=== PATIENT | female | born 1985 | race Caucasian/White ===

== ENCOUNTER 2016-11-11 21:18 | Emergency (ER) | payer MEDICAID ==
[2016-11-11] MEDS ORDERED: LIDOCAINE 1%-EPI 1:100000 20 ML MDV ONE (21:40)
[2016-11-11] MEDS ORDERED: LIDOCAINE 1%-EPI 1:100000 20 ML MDV SUBQ STA (21:40)
== END 2016-11-11 22:33 | disposition home or self-care (01) ==
DX: N76.4 Abscess of vulva (principal); Z88.1 Allergy status to other antibiotic agents

== ENCOUNTER 2017-05-14 08:02 | Outpatient (CLI) | payer MEDICAID | END 2017-05-14 08:03 | disposition home or self-care (01) | DX: R14.0 Abdominal distension (gaseous) (principal) ==

== ENCOUNTER 2017-05-16 08:00 | Outpatient (CLI) | payer MEDICAID | END 2017-05-16 08:01 | LOC: LAB.R 08:00 | PROVIDERS: ATTEND Family Medicine | DX: R14.0 Abdominal distension (gaseous) (principal); R63.4 Abnormal weight loss; J30.9 Allergic rhinitis, unspecified | CPT/HCPCS: 87338 ==

== ENCOUNTER 2017-06-03 15:37 | Outpatient (CLI) | payer MEDICAID ==
--- NOTE | 2017-06-04 08:50 | Ultrasound Report ---
THYROID ULTRASOUND: 06/03/2017 CLINICAL INDICATION: Goiter, hypothyroidism. TECHNIQUE: Real-time scanning was performed with community health representative static images obtained. FINDINGS: The right lobe measures 5.3 x 1.8 x 1.3 cm, and the left lobe measures 5.3 x 1.6 x 1.2 cm. The isthmus measures 2 mm. In the lower pole of the right lobe, there is a 0.9 x 0.5 x 0.5 cm echogenic nodule. No calcifications are seen. No adenopathy is appreciated. IMPRESSION: SMALL ECHOGENIC NODULE IN THE LOWER POLE OF THE RIGHT LOBE OF THE THYROID. GIVEN THE SMALL SIZE, FNA IS NOT RECOMMENDED BY [facility]. FOLLOW- UP SCAN IN 1 YEAR IS RECOMMENDED. JOB #: [id number] EXT JOB #: [id number] TOREY
== END 2017-06-03 15:38 | disposition home or self-care (01) ==
LOC: DI 15:37
PROVIDERS: ATTEND Family Medicine
DX: E04.1 Nontoxic single thyroid nodule (principal)
CPT/HCPCS: 76536

== ENCOUNTER 2017-06-16 07:30 | Emergency (ER) | payer OTHER, MEDICAID ==
--- NOTE | 2017-06-16 07:34 | ED Physician Documentation ---
PD HPI LOWER EXT INJURY - Stated complaint Stated Complaint: L LEG INJ - History obtained from History obtained from: Patient - History of Present Illness PD HPI LOW EXT INJURY LOCATION: Left, Ankle Type of injury: Blunt / blow (she says a laundry cart rolled and struck into her ankle laterally, with pain at the time, but has gotten more painful and some swollen later in day and overnight. Unable to walk comfortably this morning. Pain radiates up to the knee. She had feeling of jolt/pain shoot up to knee with initial impact. Small abrasion without laceration.) Review of Systems Skin: reports: Abrasion (s). denies: Laceration (s) Neurologic: denies: Focal weakness, Numbness PD PAST MEDICAL HISTORY - Present Medications Home Medications: Ambulatory Orders Medication Instructions Recorded Confirmed Clindamycin HCl 300 mg PO Q6H 7 Days 11/11/16 Gabapentin 1 tab PO DAILY 11/11/16 11/11/16 Hydrocodone/Acetaminophen [Vicodin 1 tab PO Q6HR PRN 11/11/16 11/11/16 5-300 mg Tablet] - Allergies Allergies/Adverse Reactions: Allergies Allergy/AdvReac Type Severity Reaction Status Date / Time Sulfa (Sulfonamide Allergy Emesis Verified 06/16/17 07:44 Antibiotics) PD ED PE NORMAL - Vitals Vital signs reviewed: Yes - General General: Alert and oriented X 3, Well developed/nourished - Derm Derm: Normal color, Warm and dry - Extremities Extremities: Other (tender lateral left ankle over lower malleolus area, with abrasion and some local swelling. Achilles firm and not tender. Medial ankle not tender. ) - Neuro Neuro: Alert and oriented X 3, No motor deficit, No sensory deficit Results - Vitals Vitals: Vital Signs - 24 hr 06/16/17 07:35 Temperature 36.6 C Heart Rate 70 Respiratory 14 Rate Blood Pressure 105/63 O2 Saturation 100 Oxygen O2 Source Room air - Rads (name of study) ankle Radiology: Prelim report reviewed, EMP read contemporaneously (no osseous injury ) PD MEDICAL DECISION MAKING - ED course Complexity details: reviewed results (no fractures), considered differential, d/ w patient Departure - Departure Disposition: 01 Home, Self Care Clinical Impression: Ankle contusion Qualifiers: Encounter type: initial encounter Laterality: left Qualified Code(s): S90.02XA - Contusion of left ankle, initial encounter Condition: Stable Record reviewed to determine appropriate education?: Yes Instructions: ED Contusion Foot, ED Sprain Ankle Comments: Ankle brace to support/guard the movement. Partial to no weight bearing as needed for couple of days. Progress activity as able. Off work today, and then tomorrow if needed. Tylenol as needed for pain every 4-6 hours. Elevate and rest the ankle often today. Forms: Activity restrictions
[2017-06-16 07:44] VITALS: BP 105/63
[2017-06-16] MEDS ORDERED: ACETAMINOPHEN 325 MG TABLET PO STA (07:45)
[2017-06-16] MEDS ORDERED: ACETAMINOPHEN 325 MG TABLET PO ONE (07:53)
--- NOTE | 2017-06-16 08:30 | XRAY Preliminary Report ---
Exam: XR Ankle 3 View LT IMPRESSION: Negative left ankle. [facility] SITE ID: [id number]
--- NOTE | 2017-06-16 08:33 | XRAY Report ---
EXAM: LEFT ANKLE RADIOGRAPHY EXAM DATE: 06/16/2017 08:05 AM. CLINICAL HISTORY: Ankle struck by cart at work yesterday. COMPARISON: None. TECHNIQUE: 3 views. FINDINGS: Bones: Normal. No fractures or bone lesions. Joints: Normal. No effusion. No subluxations. The ankle mortise is normally aligned. Soft Tissues: Normal. No soft tissue swelling. IMPRESSION: Negative left ankle. [facility] Referring Provider Line: [phone] SITE ID: [id number]
== END 2017-06-16 08:31 | disposition home or self-care (01) ==
LOC: ED 07:30
DX: S90.02XA Contusion of left ankle, initial encounter (principal); W20.8XXA Other cause of strike by thrown, projected or falling object, initial encounter
CPT/HCPCS: 73610; 99282; 99283; A9270

== ENCOUNTER 2017-06-27 09:05 | Outpatient (CLI) | payer MEDICAID | END 2017-06-27 09:06 | disposition home or self-care (01) | LOC: LAB 09:05 | PROVIDERS: ATTEND Family Medicine | DX: E03.9 Hypothyroidism, unspecified (principal) | CPT/HCPCS: 36415; 84443 ==

== ENCOUNTER 2017-07-29 15:18 | Outpatient (CLI) | payer MEDICAID ==
--- NOTE | 2017-07-30 08:32 | Ultrasound Report ---
PELVIC ULTRASOUND: 07/29/2017 CLINICAL INDICATION: Pelvic pain. TECHNIQUE: Transabdominal pelvic ultrasound performed for global evaluation. Transvaginal pelvic ul trasound performed for detailed evaluation. Real-time scanning performed and static images obtained. FINDINGS: The uterus is anteverted, measuring 8.7 x 3.8 x 5.3 cm. The endometrial echo complex emerson ures 6 mm. An IUD is noted in the expected location. No focal myometrial lesion is seen. The right ovary measures 3.0 x 2.7 x 2.1 cm, and demonstrates a follicle. The left ovary measures 3.2 x 1.9 x 1.8 cm, and demonstrates a follicle. No free fluid is present. IMPRESSION: IUD IN THE EXPECTED LOCATION. NORMAL PELVIC ULTRASOUND. JOB #: [id number] EXT JOB #:[id number]
== END 2017-07-29 15:19 | disposition home or self-care (01) ==
LOC: DI 15:18
PROVIDERS: ATTEND Obstetrics & Gynecology
DX: R10.2 Pelvic and perineal pain (principal); Z97.5 Presence of (intrauterine) contraceptive device
CPT/HCPCS: 76830; 76856

== ENCOUNTER 2018-02-03 11:49 | Emergency (ER) | payer MEDICAID ==
--- NOTE | 2018-02-03 14:17 | ED Physician Documentation ---
PD HPI CHEST PAIN - Stated complaint Stated Complaint: RT BACK PAIN - Chief complaint Chief Complaint: General - History obtained from History obtained from: Patient PD PAST MEDICAL HISTORY - Past Medical History Past Medical History: Yes - Present Medications Home Medications: Ambulatory Orders Medication Instructions Recorded Confirmed Cyclobenzaprine [Flexeril] 02/03/18 - Allergies Allergies/Adverse Reactions: Allergies Allergy/AdvReac Type Severity Reaction Status Date / Time Sulfa (Sulfonamide Allergy Intermediate Emesis Verified 02/03/18 12:02 Antibiotics) - Social History Does the pt smoke?: No Smoking Status: Never smoker Results - Vitals Vitals: Vital Signs - 24 hr 02/03/18 11:59 Temperature 36.9 C Heart Rate 78 Respiratory 16 Rate Blood Pressure 112/67 O2 Saturation 100 Oxygen O2 Source Room air
[2018-02-03] MEDS ORDERED: ACETAMINOPHEN 1,000 MG/100 ML 100 ML IV STA (14:39)
[2018-02-03] MEDS ORDERED: LIDOCAINE PATCH 5% TOP STA (14:39)
--- NOTE | 2018-02-03 14:40 | ED Physician Documentation ---
History of Present Illness - Stated complaint Stated Complaint: RT BACK PAIN - Chief complaint Chief Complaint: General - Additonal information Additional information: hx from pt 33 female to ER with R posterior scapular region pain since yesterday worse with certain movement and positions - rita laying flat, better standing up occ hurts to breath but more positional some abd pain too no fever cough no NVD no hematuria might be Review of Systems Constitutional: denies: Fever Throat: denies: Sore throat Cardiac: reports: Chest pain / pressure (posterior scapular region) Respiratory: denies: Dyspnea, Cough GI: reports: Abdominal Pain (mild). denies: Nausea, Vomiting : reports: Now EGA (maybe) Endocrine: denies: Easy bruising / bleeding Immunocompromised: denies: Immunocompromised PD PAST MEDICAL HISTORY - Past Medical History Past Medical History: Yes - Present Medications Home Medications: Ambulatory Orders Medication Instructions Recorded Confirmed Cyclobenzaprine [Flexeril] 02/03/18 Indomethacin [Indocin] 25 mg PO TIDWM PRN #21 capsule 02/03/18 Lidocaine Patch 5% [Lidoderm Patch] 1 each TOP DAILY PRN #10 patch 02/03/18 - Allergies Allergies/Adverse Reactions: Allergies Allergy/AdvReac Type Severity Reaction Status Date / Time Sulfa (Sulfonamide Allergy Intermediate Emesis Verified 02/03/18 12:02 Antibiotics) - Social History Does the pt smoke?: No Smoking Status: Never smoker PD ED PE NORMAL - Vitals Vital signs reviewed: Yes - General General: Alert and oriented X 3 - HEENT HEENT: PERRL - Neck Neck: Supple, no meningeal sign - Cardiac Cardiac: RRR - Respiratory Respiratory: No respiratory distress, Clear bilaterally - Abdomen Abdomen: Soft, Other (mod TTP RUQ neg murphys) - Extremities Extremities: No edema - Neuro Neuro: Alert and oriented X 3 Results - Vitals Vitals: Vital Signs - 24 hr 02/03/18 11:59 Temperature 36.9 C Heart Rate 78 Respiratory 16 Rate Blood Pressure 112/67 O2 Saturation 100 Oxygen O2 Source Room air - Labs Labs: Laboratory Tests 02/03/18 02/03/18 02/03/18 15:00 15:00 15:00 WBC 8.9 RBC 4.90 Hgb 14.4 Hct 42.7 MCV 87.1 MCH 29.3 MCHC 33.7 RDW 13.0 Plt Count 191 MPV 8.0 Neut # 6.2 Lymph # 2.1 Lagrange # 0.5 Eos # 0.0 Baso # 0.0 Absolute Nucleated RBC 0.00 Nucleated RBC % 0.0 D-Dimer < 200.0 L Sodium Potassium Chloride Carbon Dioxide Anion Gap BUN Creatinine Estimated GFR (MDRD) Glucose Calcium Total Bilirubin AST ALT Alkaline Phosphatase Total Protein Albumin Globulin Albumin/Globulin Ratio Lipase Serum HCG, Qual NEGATIVE Urine Color Urine Clarity Urine pH Ur Specific [place] Urine Protein Urine Glucose (UA) Urine Ketones Urine Occult Blood Urine Nitrite Urine Bilirubin Urine Urobilinogen Ur Leukocyte Esterase Urine RBC Urine WBC Ur Squamous Epith Cells Urine Bacteria Ur Microscopic Review Urine Culture Comments 02/03/18 02/03/18 15:00 15:00 WBC RBC Hgb Hct MCV MCH MCHC RDW Plt Count MPV Neut # Lymph # Lagrange # Eos # Baso # Absolute Nucleated RBC Nucleated RBC % D-Dimer Sodium 136 Potassium 3.7 Chloride 104 Carbon Dioxide 27 Anion Gap 5.0 L BUN 16 Creatinine 0.6 Estimated GFR (MDRD) 116 Glucose 87 Calcium 8.8 Total Bilirubin 0.7 AST 19 ALT 14 Alkaline Phosphatase 80 Total Protein 7.6 Albumin 4.6 Globulin 3.0 Albumin/Globulin Ratio 1.5 Lipase 16 L Serum HCG, Qual Urine Color YELLOW Urine Clarity HAZY Urine pH 6.0 Ur Specific [place] 1.025 Urine Protein NEGATIVE Urine Glucose (UA) NEGATIVE Urine Ketones NEGATIVE Urine Occult Blood TRACE-LYSE Urine Nitrite NEGATIVE Urine Bilirubin NEGATIVE Urine Urobilinogen 0.2 (NORMAL) Ur Leukocyte Esterase MODERATE H Urine RBC 0-5 Urine WBC 6-10 H Ur Squamous Epith Cells MANY Squamous H Urine Bacteria Few Ur Microscopic Review INDICATED Urine Culture Comments NOT INDICATED - Rads (name of study) ruq sono Radiology: See rad report (no gallstones) CXR Radiology: See rad report (NACPD) PD MEDICAL DECISION MAKING - ED course ED course: atraumatic R scapular pain CXR no pna pneumo tumor etc some abd TTP but sono no gallstones, no hydro UA not a clean catch but not suggestive of renal colic or pyelo neg d dimer nl mediastinum on CXR feel dissection PE pna pneumo biliary colic renal colic pyelo shingles etc ruled out so will tx symptomatically Departure - Departure Disposition: 01 Home, Self Care Clinical Impression: Thoracic back pain Qualifiers: Chronicity: acute Back pain laterality: right Qualified Code(s): M54.6 - Pain in thoracic spine Condition: Good Instructions: ED Neck Back Pain General Follow-Up: Giovanny Garcia MD [Primary Care Provider] - Prescriptions: Indomethacin [Indocin] 25 mg PO TIDWM PRN #21 capsule PRN Reason: pain Lidocaine Patch 5% [Lidoderm Patch] 1 each TOP DAILY PRN #10 patch PRN Reason: Pain Comments: All of the tests came back fine Based on the exam labs xray and ultrasound, it does not seem that you have pneumonia, a collapsed lung, an aneurysm or tear of your aorta, a blood clot in your lung, gallstones, kidney stones or a kidney infection causing your pain The pain seems worse with certain movements so it could be due to muscles in the chest wall though you do not recall a specific event. One thing that can cause severe one sided pain is shingles - often the pain precedes the rash for several days to a week - so please take a look at your back every day and if a red blistered crusted rash develops, come back to the ER for anti-viral medications Otherwise, having ruled out dangerous causes of the pain, I recommend that we let you go home with medications to ease the symptoms Forms: Activity restrictions
[2018-02-03 15:11] LABS: BASOPHILS % (AUTO) 0.3 %; EOSINOPHILS % (AUTO) 0.5 %; HGB - HEMOGLOBIN 14.4 g/dL (12.0-16.0); LYMPHOCYTES # (AUTO) 2.1 10^3/uL (1.5-3.5); LYMPHOCYTES % (AUTO) 23.2 %; MEAN CORPUSCULAR HEMOGLOBIN 29.3 pg (27.0-31.0); MEAN CORPUSCULAR HGB CONC 33.7 g/dL (32.0-36.0); MEAN CORPUSCULAR VOLUME 87.1 fL (81.0-99.0); MONOCYTES # (AUTO) 0.5 10^3/uL (0.0-1.0); MONOCYTES % (AUTO) 5.9 %; NEUTROPHILS # (AUTO) 6.2 10^3/uL (1.5-6.6); NEUTROPHILS % (AUTO) 70.1 %; PLT - PLATELET COUNT 191 10^3/uL (130-450); WHITE BLOOD COUNT 8.9 x10^3/uL (4.8-10.8)
[2018-02-03 15:15] LABS: BILIRUBIN,URINE NEGATIVE (NEGATIVE); GLUCOSE, URINE (UA) NEGATIVE (NEGATIVE); KETONES,URINE (UA) NEGATIVE (NEGATIVE); LEUKOCYTE ESTERASE, URINE MODERATE (NEGATIVE); NITRITE,URINE NEGATIVE (NEGATIVE); OCCULT BLOOD,URINE TRACE-LYSE (NEGATIVE); PROTEIN,URINE NEGATIVE (NEGATIVE); UROBILINOGEN,URINE 0.2 (NORMAL) E.U./dL (NORMAL)
[2018-02-03 15:16] LABS: CLARITY,URINE HAZY (CLEAR)
[2018-02-03 15:25] LABS: ALBUMIN 4.6 g/dL (3.2-5.5); ALBUMIN/GLOBULIN RATIO 1.5 (1.0-2.2); BILIRUBIN,TOTAL 0.7 mg/dL (0.2-1.0); CALCIUM 8.8 mg/dL (8.5-10.3); CREATININE 0.6 mg/dL (0.4-1.0); TOTAL PROTEIN 7.6 g/dL (6.7-8.2)
[2018-02-03 15:32] LABS: HCG,QUALITATIVE BLOOD NEGATIVE
[2018-02-03 15:44] LABS: BACTERIA,URINE Few /HPF (None Seen); RBC,URINE 0-5 /HPF (0-5); SQUAMOUS EPITHELIAL CELL,UR MANY Squamous (<= Few)
--- NOTE | 2018-02-03 16:49 | Ultrasound Report ---
LIMITED RIGHT UPPER QUADRANT ULTRASOUND: 02/03/2018 HISTORY: Right upper quadrant pain radiating to the right shoulder. COMPARISON: None. TECHNIQUE: Real-time scanning was performed with digital media representative static images obtained. FINDINGS: Liver: Normal echotexture and hepatic portovenous blood flow. Length 16 cm. Gallbladder: No stones. No pericholecystic fluid or wall thickening. Common bile duct: 2.7 mm. Right kidney: 11.1 cm in length. No hydronephrosis, mass, or stones. Free fluid: None. IMPRESSION: NEGATIVE RIGHT UPPER QUADRANT ULTRASOUND. TD: 02/03/2018 16:48 MTDD
--- NOTE | 2018-02-03 16:58 | XRAY Report ---
EXAM: CHEST RADIOGRAPHY EXAM DATE: 02/03/2018 04:31 PM. CLINICAL HISTORY: Right scapula pain. Negative d dimer, neg HCG. COMPARISON: None. TECHNIQUE: 2 views. FINDINGS: Lungs/Pleura: No focal opacities evident. No pleural effusion. No pneumothorax. Normal volumes. Mediastinum: Heart and mediastinal contours are unremarkable. Other: Prior anterior cervical fusion noted, otherwise no bony abnormality identified. IMPRESSION: Prior anterior cervical fusion, otherwise unremarkable 2-view chest radiography. [facility] Referring Provider Line: [phone] SITE ID: [id number]
[2018-02-03 17:37] VITALS: BP 104/61
== END 2018-02-03 17:52 | disposition home or self-care (01) ==
LOC: ED 11:49
DX: M54.6 Pain in thoracic spine (principal); R07.9 Chest pain, unspecified; R10.11 Right upper quadrant pain
CPT/HCPCS: 36415; 71046; 76705; 80053; 81001; 83690; 84703; 85025; 85379; 96365; 99283; A9270; J0131; 81003; 87086

== ENCOUNTER 2018-06-04 08:00 | Outpatient (CLI) | payer MEDICAID ==
[2018-06-04 15:31] LABS: MUDS CUTOFF CONCENTRATIONS CUTOFF CONC BELOW:
[2018-06-04 16:05] LABS: AMPHETAMINE SCREEN,URINE NEGATIVE (NEGATIVE); BENZODIAZEPINES SCREEN, URINE NEGATIVE (NEGATIVE); COCAINE SCREEN URINE NEGATIVE (NEGATIVE); METHADONE SCREEN, URINE NEGATIVE (NEGATIVE); METHAMPHETAMINES SCREEN, URINE NEGATIVE (NEGATIVE); OPIATE SCREEN, URINE NEGATIVE (NEGATIVE); OXYCODONE SCREEN, URINE NEGATIVE (NEGATIVE); PROPOXYPHENE SCREEN, URINE NEGATIVE (NEGATIVE); TRICYCLIC ANTIDEPRESSANT,URINE NEGATIVE (NEGATIVE)
== END 2018-06-04 08:01 | disposition home or self-care (01) ==
LOC: LAB.R 08:00
PROVIDERS: ATTEND Registered Nurse
DX: Z36.9 Encounter for antenatal screening, unspecified (principal)
CPT/HCPCS: 80306; 87480; 87491; 87510; 87591; 87660

== ENCOUNTER 2018-06-04 10:17 | Outpatient (CLI) | payer MEDICAID ==
[2018-06-04 11:14] LABS: BASOPHILS % (AUTO) 0.2 %; EOSINOPHILS % (AUTO) 0.3 %; HGB - HEMOGLOBIN 11.8 g/dL (12.0-16.0); LYMPHOCYTES # (AUTO) 1.5 10^3/uL (1.5-3.5); LYMPHOCYTES % (AUTO) 16.1 %; MEAN CORPUSCULAR HEMOGLOBIN 30.4 pg (27.0-31.0); MEAN CORPUSCULAR HGB CONC 34.2 g/dL (32.0-36.0); MEAN CORPUSCULAR VOLUME 89.1 fL (81.0-99.0); MONOCYTES # (AUTO) 0.7 10^3/uL (0.0-1.0); MONOCYTES % (AUTO) 7.2 %; NEUTROPHILS # (AUTO) 6.9 10^3/uL (1.5-6.6); NEUTROPHILS % (AUTO) 76.2 %; PLT - PLATELET COUNT 184 10^3/uL (130-450); RED BLOOD COUNT 3.88 10^6/uL (4.20-5.40); RED CELL DISTRIBUTION WIDTH 12.9 % (12.0-15.0); WHITE BLOOD COUNT 9.1 x10^3/uL (4.8-10.8)
[2018-06-04 11:41] LABS: BILIRUBIN,URINE NEGATIVE (NEGATIVE); GLUCOSE, URINE (UA) NEGATIVE (NEGATIVE); KETONES,URINE (UA) NEGATIVE (NEGATIVE); LEUKOCYTE ESTERASE, URINE NEGATIVE (NEGATIVE); NITRITE,URINE NEGATIVE (NEGATIVE); OCCULT BLOOD,URINE MODERATE (NEGATIVE); PROTEIN,URINE NEGATIVE (NEGATIVE); UROBILINOGEN,URINE 0.2 (NORMAL) E.U./dL (NORMAL)
[2018-06-04 11:43] LABS: CLARITY,URINE CLEAR (CLEAR)
[2018-06-04 11:48] LABS: BACTERIA,URINE Rare /HPF (None Seen); RBC,URINE 0-5 /HPF (0-5); SQUAMOUS EPITHELIAL CELL,UR FEW Squamous (<= Few)
[2018-06-05 13:17] LABS: HEPATITIS C ANTIBODY NON-REACTIVE (NON-REACTIVE)
[2018-06-05 13:41] LABS: HIV AG/AB 4TH GEN NON-REACTIVE (NON-REACTIVE)
[2018-06-05 16:16] LABS: HEPATITIS B SURFACE ANTIGEN NON-REACTIVE (NON-REACTIVE)
== END 2018-06-04 10:18 | disposition home or self-care (01) ==
LOC: LAB 10:17
PROVIDERS: ATTEND Registered Nurse
DX: Z36.9 Encounter for antenatal screening, unspecified (principal)
CPT/HCPCS: 36415; 80306; 81001; 81599; 85025; 86592; 86762; 86803; 86850; 86900; 86901; 87340; 87389; 87480; 87491; 87510; 87591; 87660

== ENCOUNTER 2018-06-09 08:39 | Emergency (ER) | payer MEDICAID ==
--- NOTE | 2018-06-09 08:47 | ED Physician Documentation ---
PD HPI FEMALE - Stated complaint Stated Complaint: CRAMPING/10WKS PREG - History obtained from History obtained from: Patient - History of Present Illness Timing - onset: Today Timing - details: Abrupt onset, Still present Associated symptoms: Pelvic pain, Vaginal bleeding (small clot and then brief bleeding, with some lower abd/pelvic cramping, that has tapered down. Mild cramping now.). No: Fever Contributing factors: (10 weeks), Sexually active. 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 denies: Abdominal Swelling, Vomiting, Constipation, Diarrhea : reports: Now EGA (10 weeks with twins, found on U/S last week.). denies: Dysuria, Frequency, Discharge Skin: denies: Rash PD PAST MEDICAL HISTORY - Past Medical History Cardiovascular: None Respiratory: None Neuro: None COUNTY HOME DEMONSTRATOR: None - Present Medications Home Medications: Ambulatory Orders Medication Instructions Recorded Confirmed Folic Acid 06/09/18 Metronidazole [Flagyl] 500 mg PO BID #14 tablet 06/09/18 Naproxen 375 mg PO BID #15 tablet 06/09/18 Ondansetron Odt [Zofran] 4 mg TL Q6H PRN #15 tablet 06/09/18 Paroxetine HCl [Paxil] 06/09/18 - Allergies Allergies/Adverse Reactions: Allergies Allergy/AdvReac Type Severity Reaction Status Date / Time Sulfa (Sulfonamide Allergy Intermediate Emesis Verified 02/03/18 12:02 Antibiotics) - Social History Does the pt smoke?: No Smoking Status: Never smoker PD ED PE NORMAL - Vitals Vital signs reviewed: Yes - General General: Alert and oriented X 3, No acute distress, Well developed/nourished - HEENT HEENT: Pharynx benign - Neck Neck: Supple, no meningeal sign, No adenopathy - Cardiac Cardiac: RRR, No murmur - Respiratory Respiratory: Clear bilaterally - Female Female : Deferred - Back Back: No CVA TTP - Derm Derm: Normal color, Warm and dry Results - Vitals Vitals: Vital Signs - 24 hr 06/09/18 08:46 Temperature 36.6 C Heart Rate 64 Respiratory 18 Rate Blood Pressure 105/62 O2 Saturation 100 Oxygen O2 Source Room air - Labs Labs: Laboratory Tests 06/09/18 09:00 Urine Color YELLOW Urine Clarity CLEAR Urine pH 7.0 Ur Specific [place] 1.010 Urine Protein NEGATIVE Urine Glucose (UA) NEGATIVE Urine Ketones NEGATIVE Urine Occult Blood NEGATIVE Urine Nitrite NEGATIVE Urine Bilirubin NEGATIVE Urine Urobilinogen 0.2 (NORMAL) Ur Leukocyte Esterase NEGATIVE Ur Microscopic Review NOT INDICATED Urine Culture Comments NOT INDICATED Procedures - Bedside sono Bedside sono by EMP: Twin IUPs with good HR for both, and no noted free fluid. PD MEDICAL DECISION MAKING - ED course Complexity details: reviewed old records (tests from office visit last week show positive for gardnerella, not treated as yet. ), considered differential, d /w patient - Sepsis Event Vital Signs: Vital Signs - 24 hr 06/09/18 08:46 Temperature 36.6 C Heart Rate 64 Respiratory 18 Rate Blood Pressure 105/62 O2 Saturation 100 Oxygen O2 Source Room air Departure - Departure Disposition: 01 Home, Self Care Clinical Impression: Bleeding in early , Bacterial vaginosis Condition: Stable Record reviewed to determine appropriate education?: Yes Instructions: ED Vaginosis Bacterial Follow-Up: [facility] [Provider Group] Prescriptions: Metronidazole [Flagyl] 500 mg PO BID #14 tablet Naproxen 375 mg PO BID #15 tablet Ondansetron Odt [Zofran] 4 mg TL Q6H PRN #15 tablet PRN Reason: Nausea / Vomiting Comments: The results from your pelvic exam from last week did show the presence of some vaginal bacterial infection. Given your symptoms with the cramping and spotting and bleeding, I would presume this is causing an irritation of the uterus and therefore would want to treat it. Metronidazole antibiotic twice daily for a week for that. Drink lots of fluids. The bedside ultrasound today shows good heartbeats of both fetuses and normal appearance of the uterus. You can use naproxen or ibuprofen twice daily for the next week to help with pains and cramps. These are okay at this point in but would not want to be used after 28-30 weeks. Tylenol can be added for pain and cramps and can be used throughout . Ondansetron if needed for nausea. Follow-up with women's health clinic later this week, call for an appointment. Return sooner if worsening symptoms of bleeding or pain. Discharge Date/Time: 06/09/18 09:39
[2018-06-09 08:51] VITALS: BP 105/62
[2018-06-09] MEDS ORDERED: ACETAMINOPHEN 325 MG TABLET PO STA (09:12)
[2018-06-09] MEDS ORDERED: IBUPROFEN 600 MG TABLET PO STA (09:12)
[2018-06-09] MEDS ORDERED: ONDANSETRON ODT 4 MG TABLET TL STA (09:12)
[2018-06-09 09:30] LABS: BILIRUBIN,URINE NEGATIVE (NEGATIVE); GLUCOSE, URINE (UA) NEGATIVE (NEGATIVE); KETONES,URINE (UA) NEGATIVE (NEGATIVE); LEUKOCYTE ESTERASE, URINE NEGATIVE (NEGATIVE); NITRITE,URINE NEGATIVE (NEGATIVE); OCCULT BLOOD,URINE NEGATIVE (NEGATIVE); PROTEIN,URINE NEGATIVE (NEGATIVE); UROBILINOGEN,URINE 0.2 (NORMAL) E.U./dL (NORMAL)
[2018-06-09 09:34] LABS: CLARITY,URINE CLEAR (CLEAR)
== END 2018-06-09 09:39 | disposition home or self-care (01) ==
LOC: ED 08:39
DX: O20.9 Hemorrhage in early pregnancy, unspecified (principal); O23.591 Infection of other part of genital tract in pregnancy, first trimester; N76.0 Acute vaginitis; B96.89 Other specified bacterial agents as the cause of diseases classified elsewhere; O30.001 Twin pregnancy, unspecified number of placenta and unspecified number of amniotic sacs, first trimester; Z3A.10 10 weeks gestation of pregnancy
CPT/HCPCS: 81003; 99282; 99283; A9270; Q0162; 81001; 87086

== ENCOUNTER 2018-07-08 08:00 | Outpatient (CLI) | payer MEDICAID | END 2018-07-08 08:01 | disposition home or self-care (01) | LOC: LAB.R 08:00 | PROVIDERS: ATTEND Registered Nurse | DX: R31.9 Hematuria, unspecified (principal) | CPT/HCPCS: 87086 ==

== ENCOUNTER 2018-10-24 10:10 | Outpatient (CLI) | payer MEDICAID ==
[2018-10-24] MEDS ORDERED: BETAMETHASONE 30 MG/5 ML VIAL IM ONE (10:11)
== END 2018-10-24 10:28 | disposition home or self-care (01) ==
LOC: FBP 10:10 → WFO 10:10
PROVIDERS: ATTEND Obstetrics & Gynecology
DX: O36.5930 Maternal care for other known or suspected poor fetal growth, third trimester, not applicable or unspecified (principal); O30.033 Twin pregnancy, monochorionic/diamniotic, third trimester; Z3A.29 29 weeks gestation of pregnancy
CPT/HCPCS: 96372

== ENCOUNTER 2018-10-25 12:04 | Outpatient (CLI) | payer MEDICAID ==
[2018-10-25] MEDS ORDERED: BETAMETHASONE 30 MG/5 ML VIAL IM ONE (12:13)
== END 2018-10-25 12:28 | disposition home or self-care (01) ==
LOC: WFO 12:04 → FBP 12:12 → WFO 12:28
PROVIDERS: ATTEND Obstetrics & Gynecology
DX: O36.5930 Maternal care for other known or suspected poor fetal growth, third trimester, not applicable or unspecified (principal); O30.033 Twin pregnancy, monochorionic/diamniotic, third trimester; Z3A.29 29 weeks gestation of pregnancy
CPT/HCPCS: 96372

== ENCOUNTER 2018-11-10 09:46 | Outpatient (CLI) | payer MEDICAID ==
[2018-11-10 10:07] VITALS: BP 95/58
--- NOTE | 2018-11-11 19:34 | PROVIDER PROGRESS NOTE ---
Subjective - Prog Note Date Prog Note Date: 11/10/18 Prog Note Time: 12:00 - Subjective Subjective: Aleja Pride is a 33-year-old 5 para 3 di-di-twin gestation at 32 weeks and 1 day who comes for her weekly scheduled NST. NST Twin A baseline 148 adequate variability adequate excels 15 x 15 no decelerations Twin B baseline 140s, adequate variability, positive excels meeting criteria, small insignificant mild spiking decelerations to 120 NST twin A reactive, category 1 NST twin B reactive, category 1 small variable decelerations very mild and insignificant
== END 2018-11-10 11:40 | disposition home or self-care (01) ==
LOC: WFO 09:46 → FBP 09:47 → WFO 11:40
PROVIDERS: ATTEND Obstetrics & Gynecology
DX: O30.043 Twin pregnancy, dichorionic/diamniotic, third trimester (principal); Z3A.32 32 weeks gestation of pregnancy
CPT/HCPCS: 59025

== ENCOUNTER 2018-11-17 10:00 | Outpatient (CLI) | payer MEDICAID ==
[2018-11-17 11:42] VITALS: BP 106/65
== END 2018-11-17 11:15 | disposition home or self-care (01) ==
LOC: FBP 10:00 → WFO 10:00
PROVIDERS: ATTEND Obstetrics & Gynecology
DX: O30.003 Twin pregnancy, unspecified number of placenta and unspecified number of amniotic sacs, third trimester (principal); Z3A.33 33 weeks gestation of pregnancy
CPT/HCPCS: 59025

== ENCOUNTER 2018-11-24 09:54 | Outpatient (CLI) | payer MEDICAID ==
[2018-11-24 10:05] VITALS: BP 108/63
== END 2018-11-24 11:00 | disposition home or self-care (01) ==
LOC: WFO 09:54 → FBP 09:55 → WFO 11:00
PROVIDERS: ATTEND Obstetrics & Gynecology
DX: O30.003 Twin pregnancy, unspecified number of placenta and unspecified number of amniotic sacs, third trimester (principal); Z3A.34 34 weeks gestation of pregnancy
CPT/HCPCS: 59025

== ENCOUNTER 2018-12-01 09:57 | Outpatient (CLI) | payer MEDICAID ==
[2018-12-01 10:32] VITALS: BP 106/59
--- NOTE | 2018-12-01 12:19 | Ultrasound Report ---
Reason: Baby A nonreactive with variable decel Procedure Date: 12/01/2018 Accession Number: [id number] / [id number] Procedure: US - OB Biophysical Profile CPT Code: FULL RESULT: EXAM: BIOPHYSICAL PROFILE EXAM DATE: 12/01/2018 11:17 AM. CLINICAL HISTORY: Baby A nonreactive with variable decel. COMPARISON: None. TECHNIQUE: Real-time sonographic evaluation of the fetus performed by the nuclear unit operator. Multiple field representatives director static images were saved for review. Please note that only 1 of the 2 fetuses was subjected to the biophysical profile evaluation as directed by the obstetric physician who was present for the examination. DATING: Established EGA 35 weeks 1 day with NATHALY 01/04/2019. GENERAL EVALUATION Twin gestation. Cardiac activity: 140 bpm, for twin A and 140 bpm for twin B. movement: Visualized. Presentation: Cephalic. Placenta: Anterior/fundal position. No evidence for previa or abruption. Amniotic fluid: Normal. ANT 16.0 cm. MVP 5.3 cm. BIOPHYSICAL PROFILE Breathing = 2 Movement = 2 Tone = 2 Amniotic Fluid = 2 Total / IMPRESSION: 1. Twin live intrauterine with gestational age 35 weeks 1 day based on established NATHALY. 2. Biophysical profile score 8 of 8. [facility]
== END 2018-12-01 11:40 | disposition home or self-care (01) ==
LOC: WFO 09:57 → FBP 09:58 → WFO 11:40
PROVIDERS: ATTEND Obstetrics & Gynecology
DX: O30.003 Twin pregnancy, unspecified number of placenta and unspecified number of amniotic sacs, third trimester (principal); Z3A.35 35 weeks gestation of pregnancy
CPT/HCPCS: 59025; 76819

== ENCOUNTER 2019-07-02 07:14 | Outpatient (CLI) | payer MEDICAID ==
[2019-07-02 09:17] LABS: THYROID STIMULATING HORMONE 2.55 uIU/mL (0.34-5.60)
[2019-07-02 09:19] LABS: FREE T4 (FREE THYROXINE) 0.67 ng/dL (0.58-1.64)
== END 2019-07-02 07:15 | disposition home or self-care (01) ==
LOC: LAB 07:14
PROVIDERS: ATTEND Family Medicine
DX: E03.9 Hypothyroidism, unspecified (principal); E04.0 Nontoxic diffuse goiter
CPT/HCPCS: 36415; 84439; 84443

== ENCOUNTER 2019-07-13 16:02 | Outpatient (CLI) | payer MEDICAID ==
--- NOTE | 2019-07-14 10:00 | Ultrasound Report ---
Reason: HYPOTHYROIDISM, GOITER Procedure Date: 07/13/2019 Accession Number: [id number] / [id number] Procedure: US - Head or Neck Soft Tissue CPT Code: FULL RESULT: EXAM: THYROID ULTRASOUND EXAM DATE: 07/13/2019 04:45 PM. CLINICAL HISTORY: Hypothyroidism, goiter. COMPARISON: HEAD OR NECK SOFT TISSUE 06/03/2017 4:05 PM. TECHNIQUE: Real time sonographic imaging of the thyroid was performed by the grocery clerk stocking. Multiple union contract representative static images were saved for review. FINDINGS: THYROID GLAND: Right Lobe: 5.1 x 1.4 x 1.8 cm, volume 6.2 cc. Normal background echotexture. Right Lobe Nodules: In the lower pole, there is again an echogenic nodule without blood flow or calcific component, 1 x 0.6 x 0.5 cm, previously 0.9 x 0.5 x 0.5 cm. Left Lobe: 5.5 x 1.2 x 1.7 cm, volume 5.2 cc. Normal background echotexture. Left Lobe Nodules: None. Isthmus: 0.25 cm AP. Isthmic Nodules: None. LYMPH NODES: No adenopathy demonstrated in the central or lateral compartment. OTHER: None. IMPRESSION: No significant interval change of the solid thyroid nodule in the lower pole of the right lobe, 1 cm in the maximal dimension, sonographic feature of low suspicion for malignancy, recommend continued thyroid ultrasound follow-up in 12-24 months. Management recommendations are based on 2015 [place] [employer] Management Guidelines for Adult Patients with Thyroid Nodules and Differentiated Thyroid Cancer. [facility]
== END 2019-07-13 16:03 | disposition home or self-care (01) ==
LOC: DI 16:02
PROVIDERS: ATTEND Family Medicine
DX: E04.1 Nontoxic single thyroid nodule (principal); E03.9 Hypothyroidism, unspecified
CPT/HCPCS: 76536

== ENCOUNTER 2020-05-19 15:25 | Outpatient (CLI) | payer MEDICAID ==
[2020-05-19 15:47] LABS: BASOPHILS % (AUTO) 0.6 %; EOSINOPHILS % (AUTO) 0.6 %; HGB - HEMOGLOBIN 12.8 g/dL (12.0-16.0); LYMPHOCYTES # (AUTO) 1.8 10^3/uL (1.5-3.5); MEAN CORPUSCULAR HEMOGLOBIN 29.8 pg (27.0-31.0); MEAN CORPUSCULAR HGB CONC 33.9 g/dL (32.0-36.0); MEAN CORPUSCULAR VOLUME 87.9 fL (81.0-99.0); MEAN PLATELET VOLUME 9.9 fL (7.9-10.8); MONOCYTES # (AUTO) 0.5 10^3/uL (0.0-1.0); MONOCYTES % (AUTO) 6.6 %; NEUTROPHILS # (AUTO) 4.5 10^3/uL (1.5-6.6); NEUTROPHILS % (AUTO) 65.9 %; PLT - PLATELET COUNT 219 10^3/uL (130-450); RED CELL DISTRIBUTION WIDTH 12.5 % (12.0-15.0); WHITE BLOOD COUNT 6.8 x10^3/uL (4.8-10.8)
[2020-05-19 16:04] LABS: % IRON SATURATION 11 % (20-50); IRON 32 ug/dL (28-170); TOTAL IRON BINDING CAPACITY 302 ug/dL (250-450); TRANSFERRIN 216 mg/dL (192-382)
== END 2020-05-19 15:26 | disposition home or self-care (01) ==
LOC: LAB 15:25
PROVIDERS: ATTEND Family Medicine
DX: D64.9 Anemia, unspecified (principal); E03.9 Hypothyroidism, unspecified
CPT/HCPCS: 36415; 83540; 84443; 84466; 85025

== ENCOUNTER 2020-08-10 12:57 | Outpatient (CLI) | payer MEDICAID ==
[2020-08-10 13:14] LABS: INR 1.1 (0.8-1.2); PT - PROTHROMBIN TIME 12.5 secs (9.9-12.6)
[2020-08-10 13:21] LABS: PARTIAL THROMBOPLASTIN TIME 36.7 secs (24.9-33.3)
== END 2020-08-10 12:58 | disposition home or self-care (01) ==
LOC: LAB 12:57
PROVIDERS: ATTEND Family Medicine
DX: R79.1 Abnormal coagulation profile (principal)
CPT/HCPCS: 36415; 85610; 85730

== ENCOUNTER 2021-01-10 15:27 | Outpatient (CLI) | payer MEDICAID ==
[2021-01-12 21:42] LABS: ANA PATTERN Nuclear, Homogeneous; ANA SCREEN POSITIVE (NEGATIVE)
== END 2021-01-10 15:28 | disposition home or self-care (01) ==
LOC: LAB 15:27
PROVIDERS: ATTEND Family Medicine
DX: M79.643 Pain in unspecified hand (principal); L40.9 Psoriasis, unspecified
CPT/HCPCS: 36415; 85651; 86038; 86140

== ENCOUNTER 2021-02-10 06:50 | Outpatient (CLI) | payer MEDICAID ==
--- NOTE | 2021-02-10 14:18 | Ultrasound Report ---
PROCEDURE: Head or Neck Soft Tissue INDICATIONS: HYPOTHYROIDISM TECHNIQUE: Real-time scanning was performed of the thyroid gland, with image documentation. COMPARISON: Prior thyroid ultrasound dated 06/04/2017. FINDINGS: Right: Thyroid lobe measures 5.7 x 1.4 x 2.1 cm, and is homogeneous in echotexture. Left: Thyroid lobe measures 5.2 x 1.3 x 1.8 cm, and is homogenous in echotexture. Isthmus: 3. mm thick. Nodule number: One Location: Right inferior Size: Unchanged at 1.2 x 0.9 x 0.7 cm. Composition: Solid Echogenicity: Hyperechoic Shape: wider than tall. Margins: Smooth Echogenic foci: None Total points: 3 ACR TI-RADS category: Mildly suspicious IMPRESSION: 1. No significant interval change in mildly suspicious right thyroid nodule. Continued sonographic fo llow-up recommended. Reviewed by: OZZY Church on 02/10/2021 2:17 PM PDT Approved by: Ron Petersen MD on 02/10/2021 2:17 PM PDT Station ID: [id number]
== END 2021-02-10 06:51 | disposition home or self-care (01) ==
LOC: DI 06:50
PROVIDERS: ATTEND Family Medicine
DX: E03.9 Hypothyroidism, unspecified (principal); E04.1 Nontoxic single thyroid nodule

== ENCOUNTER 2022-01-09 15:34 | Outpatient (CLI) | payer MEDICAID ==
--- NOTE | 2022-01-10 01:05 | XRAY Report ---
PROCEDURE: Ankle 3 View BILAT INDICATIONS: EVALUATE FOR EXTENT OF DEGENERATIVE ARTHRITIS ENTHESOPHYTES TECHNIQUE: 3 views of each ankle were acquired. COMPARISON: Left ankle radiographs 06/16/2017 FINDINGS: Bones: No acute fractures or dislocations. Ankle mortise is normally aligned. No suspicious bony l esions. Trace right posterior calcaneal enthesophyte. Soft tissues: No suspicious soft tissue calcifications. IMPRESSION: No acute osseous abnormality. No significant arthritic changes. Reviewed by: Arnav Alamo MD on 01/10/2022 1:04 AM PST Approved by: Arnav Alamo MD on 01/10/2022 1:04 AM PST Station ID: [id number]
--- NOTE | 2022-01-10 01:07 | XRAY Report ---
PROCEDURE: Knee 4 View BILAT INDICATIONS: EVALUATE FOR EXTENT OF DEGENERATIVE ARTHRITIS ENTHESOPHYTES TECHNIQUE: 4 views of each knee were acquired. COMPARISON: None. FINDINGS: Bones: No acute fractures or dislocations. No suspicious bony lesions. Very mild joint space narro wing is seen in the medial femorotibial compartments bilaterally. The lateral and anterior compartmen t joint spaces are maintained. No significant marginal osteophyte formation. Soft tissues: No joint effusion. No suspicious soft tissue calcifications. IMPRESSION: Possible minimal early medial compartment osteoarthrosis bilaterally. Reviewed by: Arnav Alamo MD on 01/10/2022 1:06 AM [facility] Approved by: Arnav Alamo MD on 01/10/2022 1:06 AM [facility] Station ID: [id number]
--- NOTE | 2022-01-10 01:09 | XRAY Report ---
PROCEDURE: SI Joints INDICATIONS: EVALUATE FOR EXTENT OF DEGENERATIVE ARTHRITIS ENTHESOPHYTES TECHNIQUE: 3 views of the sacroiliac joints were acquired. COMPARISON: None. FINDINGS: Bones: Mild widening of the sacroiliac joints is seen bilaterally that is suspicious for chronic eros ions related to prior sacroiliitis. No ankylosis is seen. The hips are symmetric. No suspicious bony lesions. No acute fractures. Soft tissues: Overlying bowel gas pattern is normal. No suspicious soft tissue densities. Intraute rine device is seen projecting over the pelvis. IMPRESSION: Mild symmetric widening of the sacroiliac joints is suspicious for chronic erosions related to prior sacroiliitis. Reviewed by: Arnav Alamo MD on 01/10/2022 1:08 AM PST Approved by: Arnav Alamo MD on 01/10/2022 1:08 AM PST Station ID: [id number]
--- NOTE | 2022-01-10 01:13 | XRAY Report ---
PROCEDURE: Lumbar Spine Complete INDICATIONS: EVALUATE FOR EXTENT OF DEGENERATIVE ARTHRITIS ENTHESOPHYTES TECHNIQUE: 4 views of the lumbar spine were acquired. COMPARISON: None. FINDINGS: Bones: 5 [id number] vertebrae are present. There is normal bony alignment. No vertebral body compression fractures. No suspicious bony lesions. No syndesmophytes are seen. Minimal facet hypertr ophy at the L5-S1 level. Soft tissues: Overlying bowel gas pattern is normal. No suspicious soft tissue calcifications. Int rauterine device is seen projecting over the pelvis. IMPRESSION: Minimal facet hypertrophy at the L5-S1 level. Otherwise normal lumbar spine radiographs. Reviewed by: Arnav Alamo MD on 01/10/2022 1:11 AM [facility] Approved by: Arnav Alamo MD on 01/10/2022 1:11 AM [facility] Station ID: [id number]
== END 2022-01-09 15:35 | disposition home or self-care (01) ==
LOC: DI 15:34
PROVIDERS: ATTEND Internal Medicine Rheumatology
DX: Z87.2 Personal history of diseases of the skin and subcutaneous tissue (principal); R76.8 Other specified abnormal immunological findings in serum; M54.50 Low back pain, unspecified; G89.29 Other chronic pain; M25.561 Pain in right knee; M25.562 Pain in left knee; M25.571 Pain in right ankle and joints of right foot; M25.572 Pain in left ankle and joints of left foot; M47.816 Spondylosis without myelopathy or radiculopathy, lumbar region; R93.7 Abnormal findings on diagnostic imaging of other parts of musculoskeletal system

== ENCOUNTER 2022-03-05 10:18 | Outpatient (CLI) | payer MEDICAID ==
[2022-03-05 10:55] LABS: THYROID STIMULATING HORMONE 0.93 uIU/mL (0.34-5.60)
--- NOTE | 2022-03-05 17:45 | Ultrasound Report ---
PROCEDURE: Head or Neck Soft Tissue INDICATIONS: THYROID NODULE TECHNIQUE: Real time scanning was performed of the neck region of interest, with image documentation . COMPARISON: Thyroid ultrasound, 02/10/2021. FINDINGS: Right: Thyroid lobe measures 5.8 x 1.4 x 1.9 cm, and is homogeneous in echotexture. Left: Thyroid lobe measures 5.5 x 1.4 x 1.6 cm, and is homogenous in echotexture. Isthmus: 2.8 mm thick. Nodule number: One Location: Right inferior Size: 1.3 x 0.9 x 0.8 cm.; Previously 1.2 x 0.9 x 0.7 cm Composition: Solid Echogenicity: Hyperechoic Shape: wider than tall. Margins: Smooth Echogenic foci: None Total points: 3 ACR TI-RADS category: TI-RADS 3. IMPRESSION: Stable right thyroid nodule. Continued sonographic follow-up as recommended by guideline . . ACR TI-RADS definitions and recommendations: TI-RADS 1 (benign): 0 points. FNA not needed. TI-RADS 2 (not suspicious): 2 points. FNA not needed. TI-RADS 3 (mildly suspicious): 3 points. "FNA if 2.5 cm or larger, follow up if 1.5 cm or larger (at 1, 3, and 5 years). TI-RADS 4 (moderately suspicious): 4-6 points. "FNA if 1.5 cm or larger, follow up if 1 cm or larger (at 1, 2, 3, and 5 years). TI-RADS 5 (highly suspicious): 7 points or more. "FNA if 1 cm or larger, follow up if 0.5 cm or larger (every year for 5 years). Reviewed by: Bhargavi Phelan MD on 03/05/2022 5:44 PM PDT Approved by: Bhargavi Phelan MD on 03/05/2022 5:44 PM PDT Station ID: [id number]
== END 2022-03-05 10:19 | disposition home or self-care (01) ==
LOC: DI 10:18
PROVIDERS: ATTEND Family Medicine
DX: E04.1 Nontoxic single thyroid nodule (principal); E06.3 Autoimmune thyroiditis
CPT/HCPCS: 36415; 84443

== ENCOUNTER 2022-07-23 14:32 | Outpatient (CLI) | payer MEDICAID ==
[2022-07-23 14:44] LABS: BASOPHILS % (AUTO) 0.4 %; EOSINOPHILS % (AUTO) 0.4 %; HCT - HEMATOCRIT 38.6 % (37.0-47.0); HGB - HEMOGLOBIN 13.1 g/dL (12.0-16.0); LYMPHOCYTES % (AUTO) 27.7 %; MEAN CORPUSCULAR HEMOGLOBIN 29.8 pg (27.0-31.0); MEAN CORPUSCULAR HGB CONC 33.9 g/dL (32.0-36.0); MEAN CORPUSCULAR VOLUME 87.7 fL (81.0-99.0); MEAN PLATELET VOLUME 9.6 fL (7.9-10.8); MONOCYTES # (AUTO) 0.6 10^3/uL (0.0-1.0); MONOCYTES % (AUTO) 7.6 %; NEUTROPHILS # (AUTO) 4.6 10^3/uL (1.5-6.6); NEUTROPHILS % (AUTO) 63.6 %; PLT - PLATELET COUNT 190 10^3/uL (130-450); RED CELL DISTRIBUTION WIDTH 12.2 % (12.0-15.0); WHITE BLOOD COUNT 7.3 x10^3/uL (4.8-10.8)
[2022-07-23 14:58] LABS: ALBUMIN 4.6 g/dL (3.2-5.5); ALBUMIN/GLOBULIN RATIO 1.5 (1.0-2.2); BILIRUBIN,TOTAL 0.5 mg/dL (0.2-1.0); CALCIUM 9.2 mg/dL (8.5-10.3); CREATININE 0.7 mg/dL (0.4-1.0); POTASSIUM 4.4 mmol/L (3.5-5.0); TOTAL PROTEIN 7.6 g/dL (6.7-8.2)
== END 2022-07-23 14:33 | disposition home or self-care (01) ==
LOC: LAB 14:32
PROVIDERS: ATTEND Internal Medicine Rheumatology
DX: M79.7 Fibromyalgia (principal); R76.8 Other specified abnormal immunological findings in serum; M54.50 Low back pain, unspecified; G89.29 Other chronic pain; Z87.2 Personal history of diseases of the skin and subcutaneous tissue
CPT/HCPCS: 36415; 80053; 85025

== ENCOUNTER 2022-08-16 08:00 | Outpatient (CLI) | payer MEDICAID ==
[2022-08-16 22:23] LABS: BACTERIAL VAGINOSIS DNA POSITIVE (NEGATIVE); CANDIDA GLABRATA DNA NEGATIVE (NEGATIVE); CANDIDA GROUP DNA NEGATIVE (NEGATIVE); CANDIDA KRUSEI DNA NEGATIVE (NEGATIVE); TRICHOMONAS VAGINALIS DNA NEGATIVE (NEGATIVE)
== END 2022-08-16 23:59 | disposition home or self-care (01) ==
LOC: LAB.R 08:00
PROVIDERS: ATTEND Nurse Practitioner
DX: N89.8 Other specified noninflammatory disorders of vagina (principal)
CPT/HCPCS: 81514

== ENCOUNTER 2022-08-23 20:12 | Outpatient (CLI) | payer MEDICAID ==
--- NOTE | 2022-08-24 12:24 | Ultrasound Report ---
PROCEDURE: Pelvic w/Transvaginal INDICATIONS: IUD SURVEILLANCE TECHNIQUE: Real-time scanning was performed of the pelvic organs, with image documentation. Additional endovagi nal scanning was necessary due to incomplete visualization of the adnexal and endometrial structures by transabdominal scanning. COMPARISON: Pelvic ultrasound 07/29/2017 FINDINGS: Uterus: Uterus is anteverted and normal in size at 8.5 x 4.6 x 5.6 cm. The myometrium is heterogene ous. The endometrium measures 7.1 mm in combined thickness. IUD is present. Ovaries: The right ovary measures 4.8 x 2.5 x 3.7 cm, with a calculated ovarian volume of 24 cc. Th e left ovary measures 2.0 x 1.2 x 2.1 cm, with a calculated ovarian volume of 2.5 cc. There is a focu s of heterogeneous echogenicity within the right ovary measuring 2.7 x 2.6 x 2.4 cm. Other: No pathologic free abdominal or pelvic fluid. IMPRESSION: IUD is in appropriate position. Hemorrhagic cyst within the right ovary. Reviewed by: Carol David MD on 08/24/2022 12:22 PM PDT Approved by: Carol David MD on 08/24/2022 12:22 PM PDT Station ID: [id number]
== END 2022-08-23 20:13 | disposition home or self-care (01) ==
LOC: DI 20:12
PROVIDERS: ATTEND Nurse Practitioner
DX: Z30.431 Encounter for routine checking of intrauterine contraceptive device (principal); N83.201 Unspecified ovarian cyst, right side

== ENCOUNTER 2022-08-30 07:46 | Outpatient (CLI) | payer MEDICAID ==
[2022-08-30 08:25] LABS: CHOL/HDL RATIO 3.8 (<4.4); CHOLESTEROL 177 mg/dL; HDL CHOLESTEROL 47 mg/dL; LDL CHOLESTEROL,CALCULATED 112 mg/dL; LDL/HDL RATIO 2.4 (<4.4); TRIGLYCERIDES 90 mg/dL; VLDL CHOLESTEROL 18 mg/dL
[2022-08-30 08:30] LABS: THYROID STIMULATING HORMONE 1.17 uIU/mL (0.34-5.60)
[2022-08-30 08:32] LABS: FREE T3 3.47 pg/mL (2.5-3.9); FREE T4 (FREE THYROXINE) 0.98 ng/dL (0.58-1.64)
[2022-08-31 18:07] LABS: THYROGLOBULIN ANTIBODY 1.9 IU/mL (0.0-0.9)
== END 2022-08-30 07:47 | disposition home or self-care (01) ==
LOC: LAB 07:46
PROVIDERS: ATTEND Physician Assistant
DX: E03.9 Hypothyroidism, unspecified (principal); E04.0 Nontoxic diffuse goiter; Z13.220 Encounter for screening for lipoid disorders
CPT/HCPCS: 36415; 80061; 83721; 84439; 84443; 84481; 86376; 86800

== ENCOUNTER 2022-10-08 15:26 | Outpatient (CLI) | payer MEDICAID ==
--- NOTE | 2022-10-08 17:29 | Ultrasound Report ---
PROCEDURE: Head or Neck Soft Tissue INDICATIONS: THYROID NODULE TECHNIQUE: Real-time scanning was performed of the thyroid gland, with image documentation. COMPARISON: 03/05/2022 FINDINGS: Right: Thyroid lobe measures 5.7 x 1.5 x 2.0 cm, and is homogeneous in echotexture. Left: Thyroid lobe measures 5.1 x 1.2 x 1.7 cm, and is homogenous in echotexture. Isthmus: 2.8 mm thick. Nodule number: 1 Location: Right inferior Size: 1.3 x 0.9 x 0.8 cm. Composition: Solid Echogenicity: Hyperechoic Shape: wider than tall. Margins: Smooth Echogenic foci: None Total points: 3 ACR TI-RADS category: 3 IMPRESSION: Stable right thyroid nodule measuring 1.3 x 0.9 x 0.8 cm. ACR TI-RADS definitions and recommendations: TI-RADS 1 (benign): 0 points. FNA not needed. TI-RADS 2 (not suspicious): 2 points. FNA not needed. TI-RADS 3 (mildly suspicious): 3 points. "FNA if 2.5 cm or larger, follow up if 1.5 cm or larger (at 1, 3, and 5 years). TI-RADS 4 (moderately suspicious): 4-6 points. "FNA if 1.5 cm or larger, follow up if 1 cm or larger (at 1, 2, 3, and 5 years). TI-RADS 5 (highly suspicious): 7 points or more. "FNA if 1 cm or larger, follow up if 0.5 cm or larger (every year for 5 years). Reviewed by: Sawyer Rios on 10/08/2022 5:27 PM PST Approved by: Sawyer Rios on 10/08/2022 5:27 PM PST Station ID: [id number]
== END 2022-10-08 15:27 | disposition home or self-care (01) ==
LOC: DI 15:26
PROVIDERS: ATTEND Physician Assistant
DX: E04.1 Nontoxic single thyroid nodule (principal)

== ENCOUNTER 2022-12-14 20:35 | Emergency (ER) | payer MEDICAID ==
[2022-12-14] MEDS ORDERED: oxyCODONE 5 MG TABLET PO STA (21:06)
--- NOTE | 2022-12-14 21:16 | ED Physician Documentation ---
PD HPI LOWER EXT INJURY - Stated complaint Stated Complaint: LT FOOT INJ - Chief complaint Chief Complaint: Trauma Ext - History obtained from History obtained from: Patient - History of Present Illness PD HPI LOW EXT INJURY LOCATION: Left, Foot Pain level max: 8 Pain level now: 6 Improved by: Rest, Ice, Immobilization Worsened by: Moving, Palpating Associated symptoms: Swelling. No: Weakness, Numbness, Tingling Contributing factors: No: Anticoagulated - Additional information Additional information: 37-year-old female with pain to the dorsum of the left foot after kicking a another person at [employer] practice tonight. She states that she connected with their evans on the top of her foot. Noted bruising tonight. Concerned about potential fracture. Review of Systems : denies: Now [facility] PD PAST MEDICAL HISTORY - Past Medical History Cardiovascular: None Respiratory: None Neuro: None LOAN CONSULTANT: None - Past Surgical History Past Surgical History: Yes General: Appendectomy Ortho: Spine surgery - Present Medications Home Medications: Ambulatory Orders Medication Instructions Recorded Confirmed HYDROcod/ACETAM 5/325 [Greenleaf 5/325] 1 - 2 ea PO Q6H PRN #14 tablet 12/14/22 - Allergies Allergies/Adverse Reactions: Allergies Allergy/AdvReac Type Severity Reaction Status Date / Time Sulfa (Sulfonamide Allergy Intermediate Emesis Verified 12/14/22 20:54 Antibiotics) - Social History Does the pt smoke?: No Smoking Status: Never smoker Does the pt drink ETOH?: No Does the pt have substance abuse?: No - Immunizations Immunizations are current?: Yes - POLST Patient has POLST: No PD ED PE NORMAL - Vitals Vital signs reviewed: Yes - General General: Alert and oriented X 3, No acute distress - Derm Derm: Warm and dry - Extremities Extremities: Other (L foot - Tender to palpation over the dorsum of the left foot. No deformity. Mild swelling, mild ecchymosis. Neurovascular intact. Otherwise normal examination of the left foot and ankle) - Neuro Neuro: Alert and oriented X 3 Results - Vitals Vitals: Vital Signs - 24 hr 12/14/22 20:51 Temperature 36.2 C L Heart Rate 85 Respiratory 14 Rate Blood Pressure 118/56 L O2 Saturation 99 Oxygen O2 Source Room air - Rads (name of study) Left foot x-ray Radiology: Final report received, See rad report (No acute abnormality) PD Medical Decision Making - ED course Complexity details: reviewed results, re-evaluated patient, considered differential, d/w patient ED course: 37-year-old female presents to the emergency department with a left foot contusion. No acute findings on x-ray. No evidence of fracture. Pain well controlled. Declines crutches. We will prescribe pain medication for home and have her follow-up with her doctor for further care. Patient counseled regarding signs and symptoms for which I believe and urgent re-evaluation would be necessary. Patient with good understanding of and agreement to plan and is comfortable going home at this time This document was made in part using voice recognition software. While efforts are made to proofread this document, sound alike and grammatical errors may occur. Departure - Departure Disposition: 01 Home, Self Care Clinical Impression: Contusion of left foot Qualifiers: Encounter type: initial encounter Qualified Code(s): S90.32XA - Contusion of left foot, initial encounter Condition: Good Instructions: ED Contusion Foot Follow-Up: Minna Mejia PA [Primary Care Provider] - Within 1 week Prescriptions: HYDROcod/ACETAM 5/325 [Greenleaf 5/325] 1 - 2 ea PO Q6H PRN #14 tablet PRN Reason: Pain Comments: Your x-ray does not show any acute abnormalities. Please follow-up with your doctor for further care. Please return if you worsen. Your prescriptions were sent to [facility] in [place].
[2022-12-14 22:05] VITALS: BP 111/71
--- NOTE | 2022-12-14 22:19 | XRAY Report ---
PROCEDURE: Foot 3 View LT INDICATIONS: Injury to L foot/kicked someone on evans/s[employer]'s TECHNIQUE: 3 views of the foot were acquired. COMPARISON: None. FINDINGS: Bones: No fractures or dislocations. No suspicious bony lesions. Soft tissues: No tibiotalar joint effusion. Achilles tendon appears normal. IMPRESSION: 1. No fracture or dislocation. Reviewed by: Bakari Dumont MD on 12/14/2022 10:17 PM [facility] Approved by: Bakari Dumont MD on 12/14/2022 10:17 PM [facility] Station ID: [id number]
== END 2022-12-14 22:05 | disposition home or self-care (01) ==
LOC: ED 20:35
DX: S90.32XA Contusion of left foot, initial encounter (principal); W51.XXXA Accidental striking against or bumped into by another person, initial encounter; Y93.75 Activity, martial arts; Y92.39 Other specified sports and athletic area as the place of occurrence of the external cause
CPT/HCPCS: 73630; 99283; A9270

== ENCOUNTER 2023-01-14 14:54 | Outpatient (CLI) | payer MEDICAID ==
[2023-01-14 15:16] LABS: BASOPHILS % (AUTO) 0.5 %; EOSINOPHILS % (AUTO) 0.3 %; HCT - HEMATOCRIT 37.3 % (37.0-47.0); HGB - HEMOGLOBIN 12.2 g/dL (12.0-16.0); LYMPHOCYTES % (AUTO) 22.4 %; MEAN CORPUSCULAR HEMOGLOBIN 29.2 pg (27.0-31.0); MEAN CORPUSCULAR HGB CONC 32.7 g/dL (32.0-36.0); MEAN CORPUSCULAR VOLUME 89.2 fL (81.0-99.0); MEAN PLATELET VOLUME 9.5 fL (7.9-10.8); MONOCYTES # (AUTO) 0.5 10^3/uL (0.0-1.0); MONOCYTES % (AUTO) 5.6 %; NEUTROPHILS # (AUTO) 6.2 10^3/uL (1.5-6.6); NEUTROPHILS % (AUTO) 71.1 %; PLT - PLATELET COUNT 241 10^3/uL (130-450); RED BLOOD COUNT 4.18 10^6/uL (4.20-5.40); RED CELL DISTRIBUTION WIDTH 12.6 % (12.0-15.0); WHITE BLOOD COUNT 8.7 x10^3/uL (4.8-10.8)
[2023-01-14 15:33] LABS: ALBUMIN 4.5 g/dL (3.2-5.5); ALBUMIN/GLOBULIN RATIO 1.6 (1.0-2.2); ALKALINE PHOSPHATASE 78 IU/L (42-121); ALT ALANINE AMINOTRANSFERASE 16 IU/L (10-60); AST ASPARTATE AMINOTRANSFERASE 20 IU/L (10-42); BILIRUBIN,TOTAL 0.4 mg/dL (0.2-1.0); BUN - BLOOD UREA NITROGEN 14 mg/dL (6-20); CALCIUM 8.7 mg/dL (8.5-10.3); CARBON DIOXIDE - CO2 24 mmol/L (21-32); CHLORIDE 108 mmol/L (101-111); CREATININE 0.6 mg/dL (0.4-1.0); GFR - MDRD 113 (>89); GLUCOSE 100 mg/dL (70-100); POTASSIUM 3.6 mmol/L (3.5-5.0); SODIUM 138 mmol/L (135-145); TOTAL PROTEIN 7.4 g/dL (6.7-8.2)
[2023-01-14 15:54] LABS: CRP - C-REACTIVE PROTEIN < 1.0 mg/dL (0-1.0)
== END 2023-01-14 14:55 | disposition home or self-care (01) ==
LOC: LAB 14:54
PROVIDERS: ATTEND Internal Medicine Rheumatology
DX: M46.1 Sacroiliitis, not elsewhere classified (principal); Z87.2 Personal history of diseases of the skin and subcutaneous tissue; Z51.81 Encounter for therapeutic drug level monitoring; Z79.1 Long term (current) use of non-steroidal anti-inflammatories (NSAID)
CPT/HCPCS: 36415; 80053; 85025; 85651; 86140

== ENCOUNTER 2023-02-06 15:02 | Outpatient (CLI) | payer MEDICAID ==
[2023-02-06 15:47] LABS: THYROID STIMULATING HORMONE 1.16 uIU/mL (0.34-5.60)
[2023-02-06 15:48] LABS: FREE T3 3.68 pg/mL (2.5-3.9)
[2023-02-06 15:49] LABS: FREE T4 (FREE THYROXINE) 0.98 ng/dL (0.58-1.64)
== END 2023-02-06 15:03 | disposition home or self-care (01) ==
LOC: LAB 15:02
PROVIDERS: ATTEND Physician Assistant
DX: E06.3 Autoimmune thyroiditis (principal)
CPT/HCPCS: 36415; 84439; 84443; 84481

== ENCOUNTER 2023-02-11 07:44 | Outpatient (CLI) | payer MEDICAID ==
--- NOTE | 2023-02-11 08:56 | XRAY Report ---
PROCEDURE: Foot 3 View LT INDICATIONS: FOOT PAIN,LEFT TECHNIQUE: 3 views of the foot were acquired. COMPARISON: None. FINDINGS: Bones: No fractures or dislocations. No suspicious bony lesions. Soft tissues: No suspicious soft tissue calcifications or masses. IMPRESSION: No acute bony abnormality. Reviewed by: Oswaldo Bell on 02/11/2023 8:55 AM PDT Approved by: Oswaldo Bell on 02/11/2023 8:55 AM PDT Station ID: [id number]
== END 2023-02-11 07:45 | disposition home or self-care (01) ==
LOC: DI 07:44
PROVIDERS: ATTEND Physician Assistant
DX: M79.672 Pain in left foot (principal)

== ENCOUNTER 2024-01-14 07:43 | Outpatient (CLI) | payer MEDICAID ==
[2024-01-14 08:02] LABS: BASOPHILS % (AUTO) 0.7 %; EOSINOPHILS % (AUTO) 0.7 %; HGB - HEMOGLOBIN 12.6 g/dL (12.0-16.0); LYMPHOCYTES # (AUTO) 1.8 10^3/uL (1.5-3.5); MEAN CORPUSCULAR HEMOGLOBIN 28.8 pg (27.0-31.0); MEAN CORPUSCULAR HGB CONC 32.3 g/dL (32.0-36.0); MEAN PLATELET VOLUME 8.9 fL (7.9-10.8); MONOCYTES # (AUTO) 0.5 10^3/uL (0.0-1.0); MONOCYTES % (AUTO) 8.7 %; NEUTROPHILS # (AUTO) 3.1 10^3/uL (1.5-6.6); NEUTROPHILS % (AUTO) 56.7 %; PLT - PLATELET COUNT 190 10^3/uL (130-450); RED BLOOD COUNT 4.38 10^6/uL (4.20-5.40); RED CELL DISTRIBUTION WIDTH 11.9 % (12.0-15.0); WHITE BLOOD COUNT 5.4 x10^3/uL (4.8-10.8)
[2024-01-14 08:23] LABS: ALBUMIN 4.3 g/dL (3.2-5.5); ALBUMIN/GLOBULIN RATIO 1.7 (1.0-2.2); ALKALINE PHOSPHATASE 87 IU/L (42-121); ALT ALANINE AMINOTRANSFERASE 14 IU/L (10-60); AST ASPARTATE AMINOTRANSFERASE 17 IU/L (10-42); BILIRUBIN,TOTAL 0.4 mg/dL (0.2-1.0); BUN - BLOOD UREA NITROGEN 15 mg/dL (6-20); CARBON DIOXIDE - CO2 26 mmol/L (21-32); CHLORIDE 107 mmol/L (101-111); CHOL/HDL RATIO 3.6 (<4.4); CHOLESTEROL 177 mg/dL; CREATININE 0.6 mg/dL (0.6-1.3); GFR - MDRD 112 (>89); GLUCOSE 98 mg/dL (74-104); HDL CHOLESTEROL 49 mg/dL; LDL CHOLESTEROL,CALCULATED 109 mg/dL; LDL/HDL RATIO 2.2 (<4.4); SODIUM 137 mmol/L (135-145); TOTAL PROTEIN 6.8 g/dL (6.4-8.9); TRIGLYCERIDES 93 mg/dL (48-352); VLDL CHOLESTEROL 19 mg/dL
[2024-01-14 08:37] LABS: THYROID STIMULATING HORMONE 1.47 uIU/mL (0.34-5.60)
== END 2024-01-14 07:44 | disposition home or self-care (01) ==
LOC: LAB 07:43
PROVIDERS: ATTEND Physician Assistant
DX: E06.3 Autoimmune thyroiditis (principal); Z13.9 Encounter for screening, unspecified
CPT/HCPCS: 36415; 80050; 80061; 83721; 84439; 84481

== ENCOUNTER 2024-01-30 15:15 | Outpatient (CLI) | payer MEDICAID ==
--- NOTE | 2024-01-30 16:57 | Ultrasound Report ---
PROCEDURE: Chest INDICATIONS: SOFT TISSUE MASS TECHNIQUE: Real-time scanning was performed over the palpable midsternal lung with image documentation COMPARISON: None. FINDINGS: No abnormality seen within the area of interest. IMPRESSION: No abnormality is seen within the area of interest. Reviewed by: Layton Martinez MD on 01/30/2024 4:56 PM PDT Approved by: Layton Martinez MD on 01/30/2024 4:56 PM PDT Station ID: [id number]
--- NOTE | 2024-01-30 16:59 | XRAY Report ---
PROCEDURE: Cervical Spine w/Flex/Ext 6+V INDICATIONS: CERVICAL STENOSIS TECHNIQUE: 7 views of the cervical spine were acquired. COMPARISON: None. FINDINGS: Bones: Postsurgical changes with discectomy and anterior fusion at C5-C6. No fractures or dislocatio ns to the T1 level. No suspicious bony lesions. There is reduced range of motion between flexion and extension, with trace anterolisthesis at C4-C5 o n flexion and trace retrolisthesis is at C4-C5 on extension. Oblique views demonstrate moderate bilateral foraminal stenosis at C6-C7. Soft tissues: Prevertebral soft tissues are normal in thickness. IMPRESSION: 1. Discectomy and anterior fusion at C5-C6. 2. Reduced range motion between flexion and extension. 3. Trace anterolisthesis at C4 on C5 with flexion and trace retrolisthesis is with C4 on C5 with exte nsion. 4. Moderate bilateral foraminal stenosis at C6-C7. Reviewed by: Bhargavi Phelan MD on 01/30/2024 4:57 PM PDT Approved by: Bhargavi Phelan MD on 01/30/2024 4:57 PM PDT Station ID: [id number]
== END 2024-01-30 15:16 | disposition home or self-care (01) ==
LOC: DI 15:15
PROVIDERS: ATTEND Physician Assistant
DX: M79.9 Soft tissue disorder, unspecified (principal); M48.02 Spinal stenosis, cervical region; M43.12 Spondylolisthesis, cervical region; Z98.1 Arthrodesis status

== ENCOUNTER 2024-04-01 06:57 | Outpatient (CLI) | payer MEDICAID ==
[2024-04-02 09:10] LABS: ESTRADIOL 87.8 pg/mL (.)
== END 2024-04-01 06:58 | disposition home or self-care (01) ==
LOC: LAB 06:57
PROVIDERS: ATTEND Nurse Practitioner
DX: E34.9 Endocrine disorder, unspecified (principal)
CPT/HCPCS: 36415; 82166; 82670; 83001; 83002; 84402; 84403

== ENCOUNTER 2024-07-07 15:12 | Outpatient (CLI) | payer MEDICAID ==
--- NOTE | 2024-07-09 12:49 | MRI Report ---
PROCEDURE: Cervical Spine WO INDICATIONS: CERVICAL SPINAL STENOSIS, NEUROPATHY TECHNIQUE: Multiplanar multisequential MRI of the cervical spine was obtained without contrast. COMPARISON: None. FINDINGS: Alignment and Curvature: There is normal bony alignment. Bone Marrow: C5-6 discectomy and fusion with anterior plate and screw instrumentation Spinal Cord: Visualized spinal cord has normal size and signal. No cerebellar tonsillar herniation. Paraspinal Soft Tissues: No paravertebral masses. Prevertebral soft tissues are normal in thickness . C2-C3: Normal in appearance. C3-C4: Normal in appearance. C4-C5: Posterior disc osteophyte complex flattens the ventral surface cord. Moderate central stenosi s. No foraminal stenosis C5-C6: Discectomy and fusion. No central or foraminal stenosis C6-C7: No central or foraminal stenosis C7-T1: Normal in appearance. IMPRESSION: Degenerative disc disease and arthropathy at C4-5 results in moderate central stenosis with flattenin g the ventral cervical cord Reviewed by: Thomas Krishna MD on 07/09/2024 11:47 AM [facility] Approved by: Thomas Krishna MD on 07/09/2024 11:47 AM [facility] Station ID: [id number]
== END 2024-07-07 15:13 | disposition home or self-care (01) ==
LOC: DI 15:12
PROVIDERS: ATTEND Physician Assistant
DX: M50.321 Other cervical disc degeneration at C4-C5 level (principal); M48.02 Spinal stenosis, cervical region

== ENCOUNTER 2024-07-29 07:51 | Outpatient (CLI) | payer MEDICAID ==
[2024-07-29 08:37] LABS: THYROID STIMULATING HORMONE 1.21 uIU/mL (0.34-5.60)
== END 2024-07-29 07:52 | disposition home or self-care (01) ==
LOC: LAB 07:51
PROVIDERS: ATTEND Physician Assistant
DX: E06.3 Autoimmune thyroiditis (principal)
CPT/HCPCS: 36415; 84439; 84443; 84481